=== PATIENT | male | born 1980 | race Caucasian/White ===

== ENCOUNTER 2017-05-09 18:49 | Emergency (ER) | payer OTHER ==
[~2017-05-09] VITALS: Ht 182.9 cm; Wt 84.4 kg
[2017-05-09 18:50] VITALS: BP 141/81
== END 2017-05-09 20:54 | disposition left against medical advice (07) ==
LOC: ER 18:53
DX: M25.471 Effusion, right ankle (principal); Z53.21 Procedure and treatment not carried out due to patient leaving prior to being seen by health care provider; V87.8XXA Person injured in other specified noncollision transport accidents involving motor vehicle (traffic), initial encounter; Y93.55 Activity, bike riding; Y99.8 Other external cause status; Y92.89 Other specified places as the place of occurrence of the external cause
CPT/HCPCS: 73610; 73630